=== PATIENT | male | born 1980 | race Hispanic/Latino ===

== ENCOUNTER 2021-06-25 00:08 | Emergency (ER) | payer OTHER ==
[~2021-06-25] VITALS: Ht 180.3 cm; Wt 126.1 kg
[2021-06-25 00:10] VITALS: BP 141/84
[2021-06-25] MEDS ORDERED: ACETAMINOPHEN 500 MG TABLET PO ONE (01:30)
[2021-06-25] MEDS ORDERED: DIPH,PERTUSS(ACELL),TET VAC/PF 0.5 ML VIAL IM ONE (01:30)
[2021-06-25] MEDS ORDERED: IBUP-2070 PO (01:47)
[2021-06-25] MEDS ORDERED: TETANUS/DIPHTHERIA TOXOID [ADULT] 0.5 ML VIAL IM ONE (01:52)
== END 2021-06-25 02:04 | disposition home or self-care (01) ==
LOC: EDH 00:08
DX: S61.512A Laceration without foreign body of left wrist, initial encounter (principal); S83.92XA Sprain of unspecified site of left knee, initial encounter; M25.522 Pain in left elbow; F17.200 Nicotine dependence, unspecified, uncomplicated; X58.XXXA Exposure to other specified factors, initial encounter; Y93.89 Activity, other specified; Y92.89 Other specified places as the place of occurrence of the external cause; Y99.8 Other external cause status
CPT/HCPCS: 73080; 73100; 73562; 90471; 90714; 90715